=== PATIENT | female | born 1975 | race Hispanic/Latino ===

== ENCOUNTER 2025-01-20 20:13 | Emergency (ER) | payer SELFPAY ==
[~2025-01-20] VITALS: Ht 162.6 cm; Wt 47.6 kg
[2025-01-20 20:30] VITALS: PULSE 65; RESP 16; TEMP 98.2
[2025-01-20] MEDS: ONDANSETRON HCL INJ 2MG/ML 2ML 2 MG/ML VIAL IV STA (21:20)
[2025-01-20] MEDS: FAMOTIDINE 20 MG/2 ML VIAL IV STA (21:20)
[2025-01-20] MEDS: SODIUM CHLORIDE 0.9% 1000ML 1,000 ML IV STA (21:20)
[2025-01-20 21:25] LABS: BASOPHILS % 0.5 % (0.0-1.0); EOSINOPHILS # (AUTO) 0.5 (0.0-0.4); EOSINOPHILS % 6.8 % (0.0-6.0); HEMATOCRIT 35.9 % (34.2-44.1); HEMOGLOBIN 11.7 g/dL (12.0-16.0); LYMPHOCYTES # (AUTO) 1.1 (1.0-3.2); LYMPHOCYTES % 16.7 % (18.0-39.1); MEAN CORPUSCULAR HEMOGLOBIN 29.7 pg (28-32); MEAN CORPUSCULAR HGB CONC 32.6 g/dL (31-35); MEAN CORPUSCULAR VOLUME 91.1 fL (81-99); MONOCYTES # (AUTO) 0.4 (0.2-0.8); MONOCYTES % 6.3 % (4.4-11.3); NEUTROPHILS # (AUTO) 4.6 (2.1-6.9); NEUTROPHILS % 69.2 % (38.7-80.0); PLATELET COUNT 251 x10e3/uL (140-360); RED BLOOD COUNT 3.94 x10e6/uL (3.6-5.1); RED CELL DISTRIBUTION WIDTH 13.5 % (11.7-14.4); WHITE BLOOD COUNT 6.64 x10e3/uL (4.8-10.8)
[2025-01-20 21:45] LABS: OPIATES SCREEN,URINE NEGATIVE (NEGATIVE)
[2025-01-20 21:46] LABS: AMPHETAMINES SCREEN,URINE POSITIVE (NEGATIVE); BENZODIAZEPINES SCREEN,URINE NEGATIVE (NEGATIVE); CANNABINOIDS SCREEN,URINE POSITIVE (NEGATIVE); COCAINE SCREEN,URINE NEGATIVE (NEGATIVE); METHADONE SCREEN, URINE NEGATIVE (NEGATIVE); PHENCYCLIDINE SCREEN,URINE NEGATIVE (NEGATIVE)
[2025-01-20 21:47] LABS: CLARITY,URINE CLEAR (CLEAR); COLOR,URINE YELLOW (YELLOW); GLUCOSE, URINE NEGATIVE (NEGATIVE); KETONES,URINE NEGATIVE (NEGATIVE); LEUKOCYTE ESTERASE ,URINE SMALL (NEGATIVE); NITRITE,URINE NEGATIVE (NEGATIVE); PH,URINE 7 (5 - 7); PROTEIN,URINE DIPSTICK NEGATIVE (NEGATIVE)
[2025-01-20 21:48] LABS: BILIRUBIN,URINE NEGATIVE (NEGATIVE); URINE UROBILINOGEN 0.2 mg/dL (0.2 - 1)
[2025-01-20 21:49] LABS: ALBUMIN/GLOBULIN RATIO 0.7 (0.8-2.0); ANION GAP 11.5 mmol/L (8-16); BILIRUBIN,TOTAL 0.3 mg/dL (0.2-1.2); CALCIUM 8.9 mg/dL (8.4-10.2); CREATININE, SERUM 0.67 mg/dL (0.57-1.11); POTASSIUM 3.5 mmol/L (3.5-5.1); TOTAL PROTEIN 7.6 g/dL (6.5-8.1)
[2025-01-20 21:50] LABS: PREGNANCY TEST, URINE NEGATIVE (NEGATIVE)
[2025-01-20] MEDS ORDERED: IOPAMIDOL 370 MG/ML 100 ML INFUS..BTL INJ ONE (22:01)
[2025-01-20 22:03] LABS: BACTERIA,URINE RARE /HPF; RBC,URINE 0-5 /HPF (0-5)
[2025-01-20 22:04] LABS: EPITHELIAL CELLS,URINE RARE /LPF
[2025-01-21 00:06] VITALS: BP 127/65; PULSE 73; RESP 18; TEMP 98.3; O2SAT 98
== END 2025-01-20 23:45 | disposition home or self-care (01) ==
LOC: ER 20:18
DX: R10.13 Epigastric pain (principal); R11.2 Nausea with vomiting, unspecified; F15.11 Other stimulant abuse, in remission; E05.90 Thyrotoxicosis, unspecified without thyrotoxic crisis or storm; F32.A Depression, unspecified
CPT/HCPCS: 36415; 74177; 80053; 80307; 81001; 81025; 83690; 85025; 99284; J2405; J7030; Q9967